=== PATIENT | male | born 1960 | race Hispanic/Latino ===

== ENCOUNTER 2018-05-06 16:38 | Outpatient (CLI) | payer OTHER ==
--- NOTE | 2018-05-06 18:02 | RAD ---
LEFT KNEE FOUR VIEWS: 05/06/18 HISTORY: Swelling. Left knee pain. FINDINGS: There are degenerative changes in the left knee. No fracture or dislocation or bony destruction is se en. IMPRESSION: Left knee osteoarthritis. POS: [facility]
--- NOTE | 2018-05-06 19:40 | RAD ---
RIGHT KNEE FOUR VIEWS: 05/06/18 HISTORY: Right knee pain and swelling. FINDINGS: Degenerative changes are present. No fracture or dislocation or bony destruction is identified. IMPRESSION: Right knee osteoarthritis. POS: [facility]
== END 2018-05-06 16:39 | disposition home or self-care (01) ==
LOC: RAD 16:38
PROVIDERS: ATTEND Family Medicine
DX: M25.562 Pain in left knee (principal); M25.561 Pain in right knee; M25.462 Effusion, left knee; M17.0 Bilateral primary osteoarthritis of knee

== ENCOUNTER 2020-09-04 11:21 | Outpatient (CLI) | payer OTHER | END 2020-09-04 11:22 | disposition home or self-care (01) | LOC: BICRAD 11:21 | PROVIDERS: ATTEND Family Medicine | DX: S22.39XA Fracture of one rib, unspecified side, initial encounter for closed fracture (principal); R07.9 Chest pain, unspecified | CPT/HCPCS: 71046; 71110 ==

== ENCOUNTER 2020-12-20 09:30 | Outpatient (CLI) | payer OTHER | END 2020-12-20 09:31 | disposition home or self-care (01) | LOC: BICRAD 09:30 | PROVIDERS: ATTEND Psychiatry & Neurology Neurology | DX: M50.20 Other cervical disc displacement, unspecified cervical region (principal); M47.812 Spondylosis without myelopathy or radiculopathy, cervical region | CPT/HCPCS: 72040 ==

== ENCOUNTER 2020-12-31 08:51 | Outpatient (CLI) | payer OTHER | END 2020-12-31 08:52 | disposition home or self-care (01) | LOC: BICMRI 08:51 | PROVIDERS: ATTEND Psychiatry & Neurology Neurology | DX: M50.20 Other cervical disc displacement, unspecified cervical region (principal); M47.816 Spondylosis without myelopathy or radiculopathy, lumbar region | CPT/HCPCS: 72141 ==